=== PATIENT | female | born 1945 | race Caucasian/White ===

== ENCOUNTER 2017-04-04 08:45 | Day surgery (SDC) | payer MEDICARE ==
[~2017-04-04] VITALS: Ht 175.3 cm; Wt 90.7 kg
[~2017-04-04 08:45] MED LIST: ASPI-973 PO; CALC1TAB4 PO; MULT-1018 PO; PRA20 PO; Sodium Chloride LOK Flush 10 mL Syringe IV PRN; UBID100C16 PO; fentaNYL-PF 50 mCg/mL 2 mL Inj IVPUSH PRN
[2017-04-04 09:15] VITALS: BP 153/86; PULSE 72; RESP 14; O2SAT 97
[2017-04-04] MEDS: 0.9% Sodium Chloride 1,000 ML IV PRN ×2 (09:49→09:59)
[2017-04-04 10:08] VITALS: BP 127/77; PULSE 69; RESP 14; O2SAT 97
[2017-04-04 10:20] VITALS: BP 134/78; PULSE 63; RESP 16; O2SAT 97
--- NOTE | 2017-04-04 14:08 | ENDO ---
[address] [address] ENDOSCOPY PROCEDURE PATIENT: LUCIO RICHMOND : 1945 MR#: [id number] ADMIT: 04/04/2017 JOB ID: [id number] DATE: 04/04/2017 TYPE OF OPERATION: Colonoscopy. PREOPERATIVE DIAGNOSIS(ES): History of adenoma polyps. POSTOPERATIVE DIAGNOSIS(ES): Normal colonoscopy. ANESTHESIA: 1. Fentanyl 75 mcg. 2. Versed 3 mg IV administered. COMPLICATIONS: None. BLOOD LOSS: Minimal. DESCRIPTION OF PROCEDURE: After risks and benefits were explained to the patient, informed consent was obtained. After anesthesia administered, colonoscope was then inserted from the rectum to cecum. Mucosa carefully examined. Prep of the patient was fair. After procedure was done, the scope was withdrawn and the procedure terminated. FINDINGS: Upon inspection of the anus, no masses, hemorrhoids, ulcers, fissures that were seen. Throughout the entire examination. no polyps, masses, lesions. Retroflexion was normal. IMPRESSION: Normal colonoscopy. RECOMMENDATIONS: Repeat colonoscopy five years ago due to the history of tubular adenoma polyps.
== END 2017-04-04 23:59 | disposition home or self-care (01) ==
LOC: END 08:45
PROVIDERS: ATTEND Internal Medicine Gastroenterology
PROC: 0DJD8ZZ Inspection of Lower Intestinal Tract, Via Natural or Artificial Opening Endoscopic (ICD-10-PCS; principal; 2017-04-04 09:45)
DX: Z12.11 Encounter for screening for malignant neoplasm of colon (principal); Z86.010 Personal history of colon polyps
CPT/HCPCS: G0105; G0500; J2250; J3010; J7030